=== PATIENT | female | born 1955 | race Caucasian/White ===

== ENCOUNTER 2021-02-28 03:00 | Emergency (ER) | payer OTHER ==
[~2021-02-28] VITALS: Ht 165.1 cm; Wt 63.5 kg
--- NOTE | 2021-02-28 03:30 | NUR ---
Pt brought straight back to room ED1A by sliver lap tender adrian via ambulation due to syncopal episode at 0100. Pt states she blacked out and fainted for approx 2 minutes as witnessed by her daughters. Pt also states that they checked her BP at the time at it was very hypotensive [id number], then SBP=96, finally KEG=527. Pt denies any pain, nausea or discomfort, no s/sx of distress present, no diaphoresis present. 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 NSR/SB without ectopy, HR 71, RRR, normal s1s2 without g/m/r. Lungs clear bilat throughout
[2021-02-28] MEDS ORDERED: BUSP10TA3 PO (03:38)
[2021-02-28] MEDS ORDERED: HYDR-501 PO (03:38)
[2021-02-28] MEDS ORDERED: MIRT-93 PO (03:38)
--- NOTE | 2021-02-28 03:45 | NUR ---
EDMD at pt bedside for eval, pt asked if this was first episode of syncopy. Pt states 8 months ago the same exact thing happened to her when she was in [place] visiting the [facility]. No treatment was sought out at the time. Daughter states that when she came too, it was gradual like as if the pt was post ichtal. Daughter also states that pt drinks plenty of tea and ought to be well hydrated. Pt has good color, temp and appearance. No s/sx of distress present.
--- NOTE | 2021-02-28 04:45 | NUR ---
Pt taken to CT for CT of the brain/head due to LOC.
--- NOTE | 2021-02-28 05:06 | NUR ---
Pt brought back from CT without incident. Exam was successful, awaiting results
--- NOTE | 2021-02-28 05:20 | NUR ---
Clean catch UA specimen collected and sent to lab for UA, tox screan, and UA cultures.
[2021-02-28 05:29] LABS: ETHANOL < 3 MG/DL (0-0)
[2021-02-28 05:32] LABS: CARBON DIOXIDE 32 mmol/L (21-32); CHLORIDE 105 mmol/L (98-107); CREATININE 0.9 mg/dL (0.6-1.3); GLUCOSE 97 mg/dL (74-106); POTASSIUM 3.7 mmol/L (3.5-5.1); UREA NITROGEN, BLOOD 13 mg/dL (7-18)
--- NOTE | 2021-02-28 05:32 | NUR ---
Pt resting comfortably on gurney with audible snoring detected, overhead lights turned off so she can get better rest.
[2021-02-28 05:33] LABS: HEMATOCRIT 37.9 % (31.2-41.9); MEAN CORPUSCULAR HEMOGLOBIN 30.3 uug (24.7-32.8); MEAN CORPUSCULAR VOLUME 88.1 fL (75.5-95.3); PLATELET COUNT (AUTO) 152 K/uL (179-408)
[2021-02-28 05:39] LABS: ALANINE AMINOTRANSFERASE 18 U/L (14-59); ALKALINE PHOSPHATASE 59 U/L (50-136); ASPARTATE AMINOTRANSFERASE 18 U/L (15-37); BILIRUBIN,DIRECT < 0.1 mg/dL (0.0-0.2); BILIRUBIN,TOTAL 0.5 mg/dL (0.2-1.0); TOTAL PROTEIN, SERUM 7.5 g/dL (6.4-8.2)
[2021-02-28 06:13] LABS: *AMPHETAMINE, URINE NEGATIVE (NEGATIVE); *CANNABINOID, URINE NEGATIVE (NEGATIVE); *COCCAINE, URINE NEGATIVE (NEGATIVE); *OPIATE, URINE NEGATIVE (NEGATIVE); *PHENCYCLIDINE SCREEN,URINE NEGATIVE (NEGATIVE)
[2021-02-28 06:15] LABS: *BILIRUBIN,URIN NEGATIVE (NEGATIVE); *BLOOD, URINE NEGATIVE (NEGATIVE); *CLARITY,URINE CLEAR (CLEAR); *COLOR,URINE YELLOW (YELLOW); *KETONES,URINE NEGATIVE (NEGATIVE); *UROBILINOGEN,URINE 0.2 E.U./dl (NORMAL); LEUKOCYTE ESTERASE ,URINE 2+ (NEGATIVE); NITRITE, URINE NEGATIVE (NEGATIVE); UGLUCOSE NEGATIVE (NEGATIVE)
[2021-02-28] MEDS: IV NS 1000 ML 1,000 ML IV ONE (07:08)
[2021-02-28] MEDS: CEFTRIAXONE 1 G in IV DEXTROSE 5% 50 ML IV ONE (07:08)
[2021-02-28] MEDS ORDERED: CEFTRIAXONE /D5W 50ML IVPB **ER PYXIS IV ONE (07:23)
--- NOTE | 2021-02-28 07:58 | NUR ---
Patient is for transfer to [facility] , pending accepting MD and available nurse and room. Patient is AOX4, calm & breathing easily, denies any discomfort, skin warm & dry.
[2021-02-28 09:53] LABS: RBC,URINE 0-3 /HPF (0-3); SQUAMOUS EPITHELIAL CELL,UR FEW /HPF (NONE SEEN)
[2021-02-28 09:54] LABS: BACTERIA,URINE MANY /HPF (NONE SEEN)
--- NOTE | 2021-02-28 11:06 | NUR ---
Patient will tranfer to outside Facility: [facility] Physician: Mikel Location: [facility] room 528 RN: Madie frausto SBAR ALS ambulance: [facility] [id number]
--- NOTE | 2021-02-28 13:03 | NUR ---
[facility] accepted SBAR. Patient left ER in stable condition with her lunch tray.
== END 2021-02-28 13:11 | disposition short-term general hospital (02) ==
LOC: ER 03:28
DX: R55 Syncope and collapse (principal); N39.0 Urinary tract infection, site not specified; I10 Essential (primary) hypertension; F32.9 Major depressive disorder, single episode, unspecified; F41.9 Anxiety disorder, unspecified; Z79.899 Other long term (current) drug therapy; Z20.822 Contact with and (suspected) exposure to COVID-19
CPT/HCPCS: 36415; 70450; 71045; 80048; 80076; 80307; 80320; 81001; 83605; 84484; 85025; 85730; 87040 ×2; 87077; 87086; 87186; 87426; 93005; 96365; 99285; J0696; 70030-TC; A4663; G0480; J7030